=== PATIENT | female | born 1960 | race African-American/Black ===

== ENCOUNTER 2020-02-28 23:46 | Emergency (ER) | payer OTHER ==
[2020-02-29 00:02] VITALS: BP 142/89; PULSE 100; TEMP 98.3; BMI 30.2
--- NOTE | 2020-02-29 00:31 | PDOC ---
History of Present Illness - General Chief Complaint: Pain Stated Complaint: PAIN,SWELLING Time Seen by Provider: 02/29/20 00:08 History Source: Patient Exam Limitations: No Limitations - History of Present Illness Initial Comments: 02/29/20 00:30 59F PMH DM, HTN, HLD c/o 2 days of right throat pain and "lump"; gradually worsening. +pain w/ swallowing and right ear pain. +runny nose. Possible chills but denies fevers. Denies cough, sore throat, sick contacts. Denies LI, vision/hearing changes. No difficulty breathing. Allergies to PCN. Past History - Medical History Allergies/Adverse Reactions: Allergies Allergy/AdvReac Type Severity Reaction Status Date / Time Penicillins Allergy Verified 02/28/20 23:58 Cardiac Disorders: Yes (26 mi's) COPD: No Diabetes: Yes HTN: Yes Hypercholesterolemia: Yes - Surgical History Cardiac Surgery: Yes (12 stents) - Psycho-Social/Smoking History Smoking History: Never smoked - Substance Abuse Hx (Audit-C & DAST Scrn) How often the patient has a drink containing alcohol: Never Score: In Men: 4 or > Positive; In Women: 3 or > Positive: 0 Screen Result (Pos requires Nsg. Audit-10AR): Negative Review of Systems - Review of Systems Comments:: 02/29/20 06:27 CONSTITUTIONAL: Denies F / C HEENT: +right throat pain, right ear pain, pain w/ swallow. Denies headache, changes in vision / hearing, diplopia, blurry vision RESP: Denies SOB, cough CARD: Denies chest pain, palpitations GI: Denies N / V / D, abdominal pain, bloody stool : Denies dysuria, hematuria, frequency NEURO: Denies numbness, tingling, weakness MSK: Denies back pain SKIN: Denies rashes *Physical Exam - Vital Signs Last Vital Signs Temp Pulse Resp BP Pulse Ox 98.3 F 100 H 18 142/89 99 02/28/20 23:48 02/28/20 23:48 02/28/20 23:48 02/28/20 23:48 02/28/20 23:48 - Physical Exam 02/29/20 06:27 GEN: NAD, comfortable. AAOx3. HEENT: TTP of the right throat and lower mandibular soft tissue w/o induration, erythema, obvious swelling. Inadequate view of posterior pharynx; MMM, right buccal mucosal irritation / pus?. NC/AT, EOMI, PERRL. No facial asymmetry. Moist mucous membranes. Normal voice. Supple neck w/ FROM. CV: S1/S2, RRR, no m/r/g LUNG: CTAB, no wheezes, crackles, rales, rhonchi. GI: Soft, ndnt, +BS, no guarding, no rebound. MSK: 2+ distal pulses. No LE edema. No obvious deformities of all extremities. SKIN: Warm to touch, dry, no rashes appreciated. PSYCH: Normal mood and affect. NEURO: Moving all extremities well. Medical Decision Making - Medical Decision Making 02/29/20 06:28 59F PMH DM, HTN, HLD w/ 2 days of right throat pain and feeling of "lump." TTP of right throat, no erythema or induration. buccal mucosal white spot / irritation. - CT soft tissue neck - rapid strep 02/29/20 02:31 rapid strep negative awaiting CT results 02/29/20 03:02 EXAM: SOFT TISSUE NECK CT W/O CONTR HISTORY: Right throat pain, pain with swallowing COMPARISON: None. FINDINGS: The visualized brain parenchyma is unremarkable. Complete opacification of the right maxillary sinus Patent airway. Small bilateral tonsilloliths The parapharyngeal space, epiglottis, and vocal cords are normal. No peritonsillar or retropharyngeal abscess No radiopaque foreign body Status post median sternotomy Cardiomegaly with coronary artery calcifications IMPRESSION: 1. No acute findings THIS DOCUMENT HAS BEEN ELECTRONICALLY SIGNED Nato Chowdary MD 02/29/2020 02:44 EST patient dc home w/ pcp and dental f/u Discharge - Discharge Information Problems reviewed: Yes Clinical Impression/Diagnosis: Sore throat Condition: Stable Disposition: HOME - Admission No - Follow up/Referral Referrals: [facility] [place] [facility] [place] [Provider Group] - Patient Discharge Instructions Additional Instructions: Your CAT scan was reassuring. Take acetaminophen for pain as directed on the label. Eat and drink as tolerated - start with liquids. Follow up with your primary care doctor in the next 3-5 days. Follow up with dentistry in the next 3-5 days. Return to the Emergency Department if you experience any new or worsening symptoms including, but not limited to: - shortness of breath or difficulty breathing - anything that concerns you - Post Discharge Activity
[2020-02-29] MEDS ORDERED: ACETAMINOPHEN 500 MG TABLET (FP) PO ONE ×2 (00:44→02:00)
--- NOTE | 2020-02-29 02:03 | PDOC ---
Documentation entered by Kari Olivo SCRIBE, acting as scribe for Hanna Yi MD. Hanna Yi MD: This documentation has been prepared by the boePallavi Sydney, SCRIBE, under my direction and personally reviewed by me in its entirety. I confirm that the documentation accurately reflects all work, treatment, procedures, and medical decision making performed by me. Attending Attestation - Resident Resident Name: ArtGirish - ED Attending Attestation I have performed the following: I have examined & evaluated the patient, The case was reviewed & discussed with the resident, I agree w/resident's findings & plan, Exceptions are as noted - HPI HPI: 02/29/20 01:03 Patient is a 59 year old female with a significant past medical history of NIDDM, HTN, HLD who presents to the ED with one day of progressively worsening right throat pain. As per patient, she has trouble eating and swallowing secondary to her symptoms, noting it feels like there is a lump in her throat. Patient denies having eaten anything unusual recently. Denies fever, chills, headaches, nausea, vomiting, diarrhea, constipation, or urinary changes. Allergies: Penicillin - Physicial Exam PE: 02/29/20 03:07 Agree with resident exam - Medical Decision Making 02/29/20 01:28 CT scan is pending 02/29/20 03:07 Patient Name: COLLEEN PALUMBO THIS IS A PRELIMINARY REPORT FROM IMAGING [facility] SERVICE TECHNICIAN DATE OF SERVICE: 2020-02-29 01:10:41 IMAGES: 340 EXAM: SOFT TISSUE NECK CT W/O CONTR HISTORY: Right throat pain, pain with swallowing COMPARISON: None. FINDINGS: The visualized brain parenchyma is unremarkable. Complete opacification of the right maxillary sinus Patent airway. Small bilateral tonsilloliths The parapharyngeal space, epiglottis, and vocal cords are normal. No peritonsillar or retropharyngeal abscess No radiopaque foreign body Status post median sternotomy Cardiomegaly with coronary artery calcifications IMPRESSION: 1. No acute findings 02/29/20 03:07 strepnegative Pt is stable to go home; follow with [facility] Discharge - Discharge Information Problems reviewed: Yes Clinical Impression/Diagnosis: Sore throat Condition: Stable Disposition: HOME - Follow up/Referral Referrals: [facility] [place] [facility] [Provider Group] - Patient Discharge Instructions Additional Instructions: Your CAT scan was reassuring. Take acetaminophen for pain as directed on the label. Eat and drink as tolerated - start with liquids. Follow up with your primary care doctor in the next 3-5 days. Follow up with dentistry in the next 3-5 days. Return to the Emergency Department if you experience any new or worsening symptoms including, but not limited to: - shortness of breath or difficulty breathing - anything that concerns you - Post Discharge Activity
== END 2020-02-29 03:05 | disposition home or self-care (01) ==
LOC: JER 23:46
DX: R07.0 Pain in throat (principal)
CPT/HCPCS: 70490-TC; 87070; 87880; 99284-25

== ENCOUNTER 2020-05-13 18:07 | Emergency (ER) | payer OTHER ==
[2020-05-13 18:13] VITALS: BMI 31.2
--- NOTE | 2020-05-13 18:17 | PDOC ---
Rapid Medical Evaluation Chief Complaint: Respiratory Time Seen by Provider: 05/13/20 18:13 Medical Evaluation: Allergies Allergy/AdvReac Type Severity Reaction Status Date / Time Penicillins Allergy Verified 05/13/20 18:14 Vital Signs Temp Pulse Resp BP Pulse Ox 97.5 F L 92 H 19 150/78 96 05/13/20 18:10 05/13/20 18:10 05/13/20 18:10 05/13/20 18:10 05/13/20 18:10 05/13/20 18:16 CC: mild SOB x 2 weeks, genaralized rash to body x 2 months, no other complaints Exam: LCTA, o2 sat 96 on RA, no resp distress, Plan: labs, cxr, Discharge Disposition - Diagnosis SOB (shortness of breath) - Referrals - Patient Instructions - Post Discharge Activity
--- NOTE | 2020-05-13 18:21 | PDOC ---
History of Present Illness - General Chief Complaint: Respiratory Stated Complaint: SOB, RASH Time Seen by Provider: 05/13/20 18:13 History Source: Patient Exam Limitations: No Limitations - History of Present Illness Initial Comments: 05/13/20 18:48 59F with PMH of DM, HTN, CAD s/p x12, and smoker stents presents to the ED with diffuse rashes. She has been seen by Dermatology 2 weeks ago (Dr. Joyce), who told her it was eczema and was prescribed prednisone, hydroxyzine, and steroid cream. She has been noncompliant and came into the ED because it has not resolved, and wanted allergy testing done. She denied fevers, cp, sob, nvdc, dysuria. PMH: as in HPI SH: see below Meds: In chart Allergies: Tob/Etoh/Rec drugs: PCP: Specialist: Dr. Joyce (dermatology) Lost And Found Clerk: DAT GENERAL/CONSTITUTIONAL: No fever or chills. No weakness. HEENT: No change in vision. No ear pain or discharge. No sore throat. CARDIOVASCULAR: No chest pain or shortness of breath RESPIRATORY: No cough, wheezing, or hemoptysis. GASTROINTESTINAL: No nausea, vomiting, diarrhea or constipation. GENITOURINARY: No dysuria, frequency, or change in urination. MUSCULOSKELETAL: No joint or muscle swelling or pain. No neck or back pain. SKIN: No rash NEUROLOGIC: No headache, vertigo, loss of consciousness, or change in strength/sensation. ENDOCRINE: No increased thirst. No abnormal weight change HEMATOLOGIC/LYMPHATIC: No anemia, easy bleeding, or history of blood clots. ALLERGIC/IMMUNOLOGIC: No hives or skin allergy. PE GENERAL: AOx3; no acute distress HEAD: No signs of trauma, NC/AT EYES: PERRLA, EOMI, sclera anicteric, conjunctiva clear ENT: Auricles normal inspection, hearing grossly normal, nares patent, moist mucosa, oropharynx clear without exudates. NECK: Normal ROM, supple, no LAD, JVD, or masses HEART: RRR, normal S1/S2, no murmurs, rubs, or gallops. Peripheral pulses 2+ and equal bilaterally. LUNGS: No distress, speaks full sentences, clear to auscultation bilaterally ABDOMEN: Soft, nontender. No guarding, no rebound. No masses EXTREMITIES: Normal inspection, Normal range of motion, no edema. NEUROLOGICAL: Normal speech, no focal sensorimotor deficits SKIN: diffuse rash, atopic dermatitis appearing, lower extremities and buttocks Abad Yip, PGY1 Emergency Medicine Past History - Medical History Allergies/Adverse Reactions: Allergies Allergy/AdvReac Type Severity Reaction Status Date / Time Penicillins Allergy Verified 05/13/20 18:14 Cardiac Disorders: Yes (26 mi's) COPD: No Diabetes: Yes HTN: Yes Hypercholesterolemia: Yes - Surgical History Cardiac Surgery: Yes (12 stents) - Reproductive History Is Patient Now?: No - Psycho-Social/Smoking History Smoking History: Never smoked Information on smoking cessation initiated: No - Substance Abuse Hx (Audit-C & DAST Scrn) How often the patient has a drink containing alcohol: Never Score: In Men: 4 or > Positive; In Women: 3 or > Positive: 0 Screen Result (Pos requires Nsg. Audit-10AR): Negative In the last yr the pt used illegal drug/Rx for NonMed reason: No Score: Yes response is considered Positive: 0 Screen Result (Positive result requires Nsg. DAST-10): Negative *Physical Exam - Vital Signs Last Vital Signs Temp Pulse Resp BP Pulse Ox 97.5 F L 92 H 19 150/78 96 05/13/20 18:10 05/13/20 18:10 05/13/20 18:10 05/13/20 18:10 05/13/20 18:10 Medical Decision Making - Medical Decision Making 05/13/20 18:59 Signed out to night team. Discharge - Discharge Information Problems reviewed: Yes Clinical Impression/Diagnosis: Skin rash Clinical Impression/Diagnosis: (Ruled Out): Skin rash associated with AIDS - Follow up/Referral - Patient Discharge Instructions - Post Discharge Activity
--- NOTE | 2020-05-13 19:02 | PDOC ---
*Physical Exam - Vital Signs Last Vital Signs Temp Pulse Resp BP Pulse Ox 97.5 F L 92 H 19 150/78 96 05/13/20 18:10 05/13/20 18:10 05/13/20 18:10 05/13/20 18:10 05/13/20 18:10 Medical Decision Making - Medical Decision Making 05/13/20 19:00 aquafor ekg bgm allergy referral - Sheldon Coyne - sg clinic referral [facility] - PCP, derm Discharge - Discharge Information Problems reviewed: Yes Clinical Impression/Diagnosis: Skin rash Condition: Stable Disposition: HOME - Admission No - Follow up/Referral Referrals: Paloma Mckenna MD [Staff Physician] - Lenoel Coyne MD [Staff Physician] - - Patient Discharge Instructions Additional Instructions: You were seen in the ER for a skin rash. Apply over the counter aquafor as needed. Follow up with Dermatology and Allergy as soon as possible, in the next 3-4 days. Return to the ER if you develop difficulty breathing, chest pain, high fevers, weakness, confusion. - Post Discharge Activity
--- NOTE | 2020-05-13 19:07 | PDOC ---
Documentation entered by Kathryn Cisneros SCRIBE, acting as scribe for Annamarie Masterson DO. Annamarie Masterson DO: This documentation has been prepared by the gm, Kathryn Cisneros SCRIBE, under my direction and personally reviewed by me in its entirety. I confirm that the documentation accurately reflects all work, treatment, procedures, and medical decision making performed by me. Attending Attestation - Resident Resident Name: Abad Yip - ED Attending Attestation I have performed the following: I have examined & evaluated the patient, The case was reviewed & discussed with the resident, I agree w/resident's findings & plan, Exceptions are as noted - HPI HPI: 05/13/20 18:50 Patient is a 59 year old female with a significant past medical history of smoking, coronary artery disease, hypertension, and diabetes, who presents to the ED with unresolved rashes x2 weeks. Patient stated she saw her group insurance special agent 2 weeks ago for rash and was prescribed prednisone but was noncompliant with her medication so she is here today because the rash has unresolved. Patient denies: fever, chills, nausea, vomiting, SOB, chest pain, diarrhea, constipation, dysuria, or any other related symptoms. Allergies: penicillins - Physicial Exam PE: 05/13/20 19:02 Gen: aaox3, nad heart: +s1s2 reg lungs: cta b/l, keloid scar to anterior chest sternotomy scar abd: soft, nt/nd +bs ext: scaling, pruritic plaques to extensor surfaces and LE, no warmth, no erythema or induration, plaques are red in appearance but no signs of infection, also with plaque to her back - left lower back - Medical Decision Making 05/13/20 19:04 a/p: 59yo female with rash to arms and legs -has seen Dr. Esposito in the past -needs further derm eval -no signs of infection -will obtain glu and ekg -no sob -no cp -discussed with the daughter, will set up for a [facility] 05/13/20 20:27 glu 135 Heart Score/ECG Review - ECG Intrepretation Comment:: 05/13/20 20:28 sinus at 72, RBBB, lvh, no acute st changes Discharge - Discharge Information Problems reviewed: Yes Clinical Impression/Diagnosis: Skin rash Condition: Stable Disposition: HOME - Admission No - Follow up/Referral Referrals: Paloma Mckenna MD [Staff Physician] - Leonel Coyne MD [Staff Physician] - - Patient Discharge Instructions Additional Instructions: You were seen in the ER for a skin rash. Apply over the counter aquafor as needed. Follow up with Dermatology and Allergy as soon as possible, in the next 3-4 days. Return to the ER if you develop difficulty breathing, chest pain, high fevers, weakness, confusion. - Post Discharge Activity
[2020-05-13 20:33] VITALS: TEMP 98.4
[2020-05-13 20:43] VITALS: BP 135/76; PULSE 80
--- NOTE | 2020-05-14 09:55 | EKG ---
Test Reason : Blood Pressure : / mmHG Vent. Rate : 072 BPM Atrial Rate : 072 BPM P-R Int : 184 ms QRS Dur : 146 ms QT Int : 432 ms P-R-T Axes : 049 -17 076 degrees QTc Int : 473 ms NORMAL SINUS RHYTHM POSSIBLE LEFT ATRIAL ENLARGEMENT RIGHT BUNDLE BRANCH BLOCK LEFT VENTRICULAR HYPERTROPHY WITH REPOLARIZATION ABNORMALITY ABNORMAL ECG NO PREVIOUS ECGS AVAILABLE Confirmed by DIONICIO GILES MD ([id number]) on 05/14/2020 9:54:29 AM Referred By: Confirmed By:DIONICIO GILES MD
== END 2020-05-13 20:35 | disposition home or self-care (01) ==
LOC: JER 18:07
DX: R21 Rash and other nonspecific skin eruption (principal)
CPT/HCPCS: 82962; 93005; 93010; 99282-25

== ENCOUNTER 2021-02-22 13:47 | Emergency (ER) | payer OTHER ==
[2021-02-22 13:54] VITALS: TEMP 97.9; BMI 29.2
[2021-02-22] MEDS: LIDOCAINE 5% TOPICAL PATCH TP ONE ×2 (15:00→15:14)
[2021-02-22] MEDS: ACETAMINOPHEN 500 MG TABLET (FP) PO ONE ×2 (15:00→15:15)
[2021-02-22] MEDS ORDERED: LIDOCAINE 5% TOPICAL PATCH ONE (15:21)
[2021-02-22] MEDS ORDERED: ACETAMINOPHEN 325 MG TABLET (FP) ONE (15:21)
[2021-02-22 17:15] LABS: BASO % 0.6 % (0-2.0); EOS % 1.5 % (0-4.5); HEMATOCRIT 42.5 % (32.4-45.2); LYMPH % 25.2 % (8-40); MCH 28.1 pg (25.7-33.7); MCHC 32.9 g/dl (32.0-36.0); MEAN CELL VOLUME 85.5 fl (80-96); MONO % 9.6 % (3.8-10.2); NEUT % 63.1 % (42.8-82.8); PLATELET COUNT 326 10^3/uL (134-434); RBC 4.98 M/mm3 (3.60-5.2); RDW 13.8 % (11.6-15.6); WHITE BLOOD COUNT 9.9 K/mm3 (4.0-10.0)
[2021-02-22 17:21] LABS: INR 0.99 (0.83-1.09)
[2021-02-22 17:24] LABS: ACTIVATED PTT 26.5 SECONDS (25.2-36.5)
[2021-02-22 17:44] LABS: CHLORIDE 104 mmol/L (98-107); SODIUM 139 mmol/L (136-145)
[2021-02-22 17:46] LABS: GLUCOSE,RANDOM 96 mg/dL (74-106)
[2021-02-22 17:47] LABS: ALBUMIN 3.5 g/dl (3.4-5.0); ANION GAP 9 MMOL/L (8-16); BLOOD UREA NITROGEN 10.4 mg/dL (7-18); CO2 27 mmol/L (21-32)
[2021-02-22 17:49] LABS: CREATININE 0.5 mg/dL (0.55-1.3)
[2021-02-22 17:50] LABS: SGOT/AST 13 U/L (15-37); SGPT/ALT 29 U/L (13-61)
[2021-02-22 17:51] LABS: BILIRUBIN,TOTAL 0.2 mg/dL (0.2-1)
[2021-02-22 17:52] LABS: ALK PHOS 103 U/L (45-117)
[2021-02-22 17:55] LABS: N-TERMINAL BNP 165.8 pg/ml (5-125)
[2021-02-22 18:53] LABS: EPI CELLS >36 /uL (0-25.1); HYALINE CASTS 2 /uL (0-3.1); URINE APPEARANCE CLEAR; URINE BACTERIA 296 /uL (0-1359); URINE BILIRUBIN NEGATIVE (NEGATIVE); URINE COLOR YELLOW; URINE GLUCOSE (UA) 3+ (NEGATIVE); URINE KETONE NEGATIVE (NEGATIVE); URINE LEUK ESTERASE 1+ (NEGATIVE); URINE NITRITE NEGATIVE (NEGATIVE); URINE PROTEIN NEGATIVE (NEGATIVE); URINE RBC 15 /uL (0-23.9); URINE UROBILINOGEN 0.2 mg/dL (0.2-1.0); URINE WBC 107 /uL (0-25.8)
[2021-02-22 20:35] VITALS: BP 175/75; PULSE 72
[2021-02-22] MEDS ORDERED: LIDOCAINE PATCH REMOVAL MC SCH (22:00)
== END 2021-02-22 20:17 | disposition home or self-care (01) ==
LOC: JER 13:47
DX: R42 Dizziness and giddiness (principal); L03.317 Cellulitis of buttock; M54.41 Lumbago with sciatica, right side
CPT/HCPCS: 36415; 71046-TC-FY; 80053; 81003; 82550; 83735; 83880; 84484; 85025; 85610; 85730; 93005; 93010; 99285-25

== ENCOUNTER 2021-02-26 11:19 | Observation (INO) | payer OTHER ==
[2021-02-26 13:49] LABS: BASO % 0.7 % (0-2.0); EOS % 1.7 % (0-4.5); HEMATOCRIT 46.4 % (32.4-45.2); LYMPH % 27.3 % (8-40); MCH 27.9 pg (25.7-33.7); MCHC 32.3 g/dl (32.0-36.0); MEAN CELL VOLUME 86.4 fl (80-96); NEUT % 60.3 % (42.8-82.8); PLATELET COUNT 358 10^3/uL (134-434); RBC 5.37 M/mm3 (3.60-5.2)
[2021-02-26 13:56] LABS: INR 1.05 (0.83-1.09); PROTHROMBIN TIME (PATIENT) 12.9 SEC (9.7-13.0)
[2021-02-26 13:58] LABS: ACTIVATED PTT 29.1 SECONDS (25.2-36.5)
[2021-02-26 14:07] LABS: CHLORIDE 104 mmol/L (98-107); SODIUM 139 mmol/L (136-145)
[2021-02-26 14:09] LABS: CALCIUM 9.4 mg/dL (8.5-10.1)
[2021-02-26 14:10] LABS: ALBUMIN 3.6 g/dl (3.4-5.0); ANION GAP 13 MMOL/L (8-16); BLOOD UREA NITROGEN 15.1 mg/dL (7-18); CO2 21 mmol/L (21-32); GLUCOSE,RANDOM 106 mg/dL (74-106); LIPASE 257 U/L (73-393)
[2021-02-26 14:13] LABS: CREATININE 0.8 mg/dL (0.55-1.3); SGOT/AST 17 U/L (15-37); SGPT/ALT 28 U/L (13-61)
[2021-02-26 14:14] LABS: BILIRUBIN,TOTAL 0.3 mg/dL (0.2-1); TOT PROT 7.2 g/dl (6.4-8.2)
[2021-02-26 14:15] LABS: ALK PHOS 98 U/L (45-117)
[2021-02-26] MEDS: ATORVASTATIN CA 20 MG TABLET (FP) PO SCH (22:01)
[2021-02-26] MEDS: RANOLAZINE E.R. 500 MG TABLET (FP) PO SCH (22:01)
[2021-02-26] MEDS: METOPROLOL TARTRATE 50 MG TABLET (FP) PO SCH (22:01)
[2021-02-26] MEDS: INSULIN SLIDING SCALE (NOVOLOG) 1 VIAL SQ SCH (22:08)
[2021-02-26 23:59] VITALS: BMI 35.0
[2021-02-27] MEDS: INSULIN SLIDING SCALE (NOVOLOG) 1 VIAL SQ SCH ×4 (06:35→21:17)
[2021-02-27 07:35] LABS: BASO % 0.6 % (0-2.0); EOS % 2.1 % (0-4.5); HEMATOCRIT 43.9 % (32.4-45.2); HEMOGLOBIN 14.4 GM/dL (10.7-15.3); LYMPH % 26.6 % (8-40); MCH 28.2 pg (25.7-33.7); MCHC 32.7 g/dl (32.0-36.0); MEAN CELL VOLUME 86.3 fl (80-96); MEAN PLT VOLUME 8.1 fl (7.5-11.1); MONO % 10.1 % (3.8-10.2); NEUT % 60.6 % (42.8-82.8); PLATELET COUNT 343 10^3/uL (134-434); RBC 5.08 M/mm3 (3.60-5.2); RDW 13.9 % (11.6-15.6); WHITE BLOOD COUNT 9.3 K/mm3 (4.0-10.0)
[2021-02-27 07:49] LABS: CALCIUM 9.1 mg/dL (8.5-10.1)
[2021-02-27 07:50] LABS: BLOOD UREA NITROGEN 17.9 mg/dL (7-18); MAGNESIUM 2.3 mg/dL (1.8-2.4)
[2021-02-27 07:53] LABS: CREATININE 0.7 mg/dL (0.55-1.3)
[2021-02-27] MEDS: METOPROLOL TARTRATE 50 MG TABLET (FP) PO SCH ×2 (10:03→21:17)
[2021-02-27] MEDS: ENOXAPARIN NA (PORCINE) 40 MG/0.4 ML DISP.SYRIN SQ SCH (10:03)
[2021-02-27] MEDS: CLOPIDOGREL BISULFATE 75 MG TABLET (FP) PO SCH (10:03)
[2021-02-27] MEDS: RANOLAZINE E.R. 500 MG TABLET (FP) PO SCH ×2 (10:03→21:17)
[2021-02-27] MEDS: PANTOPRAZOLE 40 MG TABLET PO SCH (10:03)
[2021-02-27] MEDS: amLODIPine BESYLATE 5 MG TABLET (FP) PO SCH (10:08)
[2021-02-27] MEDS: MAG HYDROX/AL HYDROX/SIMETH 30 ML UNIT-DOSE CUP PO PRN (20:00)
[2021-02-27] MEDS: ATORVASTATIN CA 20 MG TABLET (FP) PO SCH (21:17)
[2021-02-28 00:27] LABS: PH,URINE 5.5 (5.0-8.0); URINE APPEARANCE CLEAR; URINE BILIRUBIN NEGATIVE (NEGATIVE); URINE COLOR YELLOW; URINE GLUCOSE (UA) 3+ (NEGATIVE); URINE KETONE NEGATIVE (NEGATIVE); URINE LEUK ESTERASE NEGATIVE (NEGATIVE); URINE NITRITE NEGATIVE (NEGATIVE); URINE PROTEIN NEGATIVE (NEGATIVE); URINE UROBILINOGEN 0.2 mg/dL (0.2-1.0)
[2021-02-28] MEDS: MAG HYDROX/AL HYDROX/SIMETH 30 ML UNIT-DOSE CUP PO PRN ×3 (05:55→22:54)
[2021-02-28] MEDS: INSULIN SLIDING SCALE (NOVOLOG) 1 VIAL SQ SCH ×4 (06:05→21:37)
[2021-02-28 06:38] LABS: HEMATOCRIT 43.8 % (32.4-45.2); HEMOGLOBIN 14.4 GM/dL (10.7-15.3); MCH 28.2 pg (25.7-33.7); MCHC 32.9 g/dl (32.0-36.0); MEAN CELL VOLUME 85.8 fl (80-96); PLATELET COUNT 335 10^3/uL (134-434); RDW 13.8 % (11.6-15.6); WHITE BLOOD COUNT 7.9 K/mm3 (4.0-10.0)
[2021-02-28 07:00] LABS: BLOOD UREA NITROGEN 14.4 mg/dL (7-18); CALCIUM 8.9 mg/dL (8.5-10.1)
[2021-02-28 07:01] LABS: MAGNESIUM 2.2 mg/dL (1.8-2.4)
[2021-02-28 07:04] LABS: CREATININE 0.6 mg/dL (0.55-1.3); PHOSPHOROUS 3.4 mg/dL (2.5-4.9)
[2021-02-28] MEDS: METOPROLOL TARTRATE 50 MG TABLET (FP) PO SCH ×2 (09:22→21:36)
[2021-02-28] MEDS: ENOXAPARIN NA (PORCINE) 40 MG/0.4 ML DISP.SYRIN SQ SCH (09:22)
[2021-02-28] MEDS: PANTOPRAZOLE 40 MG TABLET PO SCH (09:22)
[2021-02-28] MEDS: CLOPIDOGREL BISULFATE 75 MG TABLET (FP) PO SCH (09:22)
[2021-02-28] MEDS: FUROSEMIDE 20 MG TABLET (FP) PO SCH (09:22)
[2021-02-28] MEDS: amLODIPine BESYLATE 5 MG TABLET (FP) PO SCH (09:22)
[2021-02-28] MEDS: RANOLAZINE E.R. 500 MG TABLET (FP) PO SCH ×2 (09:22→21:36)
[2021-02-28] MEDS ORDERED: ACETAMINOPHEN 325 MG TABLET (FP) ONE (09:30)
[2021-02-28] MEDS ORDERED: ACETAMINOPHEN 325 MG TABLET (FP) PO PRN (10:08)
[2021-02-28] MEDS: ATORVASTATIN CA 20 MG TABLET (FP) PO SCH (21:36)
[2021-03-01] MEDS: MAG HYDROX/AL HYDROX/SIMETH 30 ML UNIT-DOSE CUP PO PRN ×2 (06:01→14:05)
[2021-03-01] MEDS: INSULIN SLIDING SCALE (NOVOLOG) 1 VIAL SQ SCH ×2 (06:17→11:05)
[2021-03-01] MEDS: FUROSEMIDE 20 MG TABLET (FP) PO SCH (09:23)
[2021-03-01] MEDS: ENOXAPARIN NA (PORCINE) 40 MG/0.4 ML DISP.SYRIN SQ SCH (09:23)
[2021-03-01] MEDS: amLODIPine BESYLATE 5 MG TABLET (FP) PO SCH (09:23)
[2021-03-01] MEDS: RANOLAZINE E.R. 500 MG TABLET (FP) PO SCH (09:23)
[2021-03-01] MEDS: PANTOPRAZOLE 40 MG TABLET PO SCH (09:23)
[2021-03-01] MEDS: METOPROLOL TARTRATE 50 MG TABLET (FP) PO SCH (09:23)
[2021-03-01] MEDS: CLOPIDOGREL BISULFATE 75 MG TABLET (FP) PO SCH (09:23)
[2021-03-01] MEDS ORDERED: INSULIN (NOVOLOG) ASPART 100 UNITS/ML 10ML VIAL ONE (10:57)
[2021-03-01 11:04] VITALS: BP 114/68; PULSE 76; TEMP 97.5
== END 2021-03-01 19:10 | disposition home or self-care (01) ==
LOC: JER 11:19 → JERBED 15:16 → J4W 20:33
PROVIDERS: ATTEND Internal Medicine
PROC: 3E023GC Introduction of Other Therapeutic Substance into Muscle, Percutaneous Approach (ICD-10-PCS; principal; 2021-02-26)
PROC: 3E013VG Introduction of Insulin into Subcutaneous Tissue, Percutaneous Approach (ICD-10-PCS; 2021-02-26)
DX: I25.10 Atherosclerotic heart disease of native coronary artery without angina pectoris (principal); H53.469 Homonymous bilateral field defects, unspecified side; I11.9 Hypertensive heart disease without heart failure; Z95.1 Presence of aortocoronary bypass graft; I25.2 Old myocardial infarction; E66.8 Other obesity; Z68.35 Body mass index [BMI] 35.0-35.9, adult; Z88.8 Allergy status to other drugs, medicaments and biological substances; E11.9 Type 2 diabetes mellitus without complications; R55 Syncope and collapse; R20.0 Anesthesia of skin; G45.9 Transient cerebral ischemic attack, unspecified; Z29.9 Encounter for prophylactic measures, unspecified; Z88.0 Allergy status to penicillin; Z88.6 Allergy status to analgesic agent; F17.210 Nicotine dependence, cigarettes, uncomplicated; K21.9 Gastro-esophageal reflux disease without esophagitis
CPT/HCPCS: 36415; 70450-TC; 70496-TC; 70498-TC; 71045-TC-FY; 80048; 80053; 81003; 82550; 82607; 82962; 83036; 83090; 83690; 83735; 84100; 84484; 85025; 85027; 85610; 85651; 85730; 86780; 93005; 93010; 93306-TC; 93880-TC; 96372; 97116-GP; 97161-GP; 99285-25; C9803; G0378; U0003; U0005